=== PATIENT | male | born 1995 | race African-American/Black ===

== ENCOUNTER 2017-06-06 21:12 | Emergency (ER) | payer BC ==
[~2017-06-06] VITALS: Ht 172.7 cm; Wt 77.3 kg
[2017-06-06 21:15] VITALS: Ht 172.7 cm; Wt 77.3 kg
[2017-06-06] MEDS ORDERED: KETOROLAC TROMETHAMINE 30 MG/ML VIAL IV STA (21:34)
[2017-06-06] MEDS ORDERED: ACETAMINOPHEN 500 MG TAB PO STA (21:34)
[2017-06-06] MEDS ORDERED: SODIUM CHLORIDE 0.9% 1000ML 1,000 ML IV ONE (21:45)
[2017-06-06] MEDS ORDERED: ELVI1TAB6 PO (21:51)
[2017-06-06 22:00] LABS: BASO % 0.2 %; BASO ABS # 0.03 K/uL (0-0.2); EOS % 0.2 %; EOS ABS # 0.03 K/uL (0-0.5); HEMATOCRIT 40.5 % (42-52); HEMOGLOBIN 13.7 g/dL (14.0-18.0); IG# 0.05 K/uL (0.00-0.02); LYMPH ABS # 2.09 K/uL (1.2-3.4); MEAN CELL VOLUME 85.1 fL (80-100); MEAN CORPUSCULAR HEMOGLOBIN 28.8 pg (25-34); MEAN CORPUSCULAR HGB CONC 33.8 g/dl (32-36); MEAN PLATELET VOLUME 8.8 fL (7.4-10.4); MONO % 8.6 %; MONO ABS # 1.28 K/uL (0.11-0.59); NEUT % 76.7 %; NEUT ABS # 11.47 K/uL (1.4-6.5); PLATELET COUNT 287 K/uL (130-400); RED CELL DISTRIBUTION WIDTH CV 13.6 % (11.5-14.5); RED CELL DISTRIBUTION WIDTH SD 42.4 fL (36.4-46.3); WHITE BLOOD COUNT 14.95 K/uL (4.8-10.8)
[2017-06-06 22:23] LABS: ALBUMIN 3.7 gm/dl (3.4-5.0); CALCIUM 8.9 mg/dl (8.5-10.1); CREATININE 1.12 mg/dl (0.60-1.40); POTASSIUM 3.4 mmol/L (3.5-5.1)
[2017-06-06 22:25] LABS: TOTAL PROTEIN 8.4 gm/dl (6.4-8.2)
--- NOTE | 2017-06-06 22:26 | DIAGNOSTIC IMAGING REPORT ---
CHEST 2 VIEWS ROUTINE CLINICAL HISTORY: cough fever dyspnea COMPARISON STUDY: No previous studies for comparison. FINDINGS: The bones soft tissues and hemidiaphragms are normal. The cardiomediastinal silhouette is normal. The lungs are clear. The pulmonary vasculature is normal. IMPRESSION: Negative chest. The above report was generated using voice recognition software. It may contain grammatical, syntax or spelling errors. Electronically signed by: Serafin Tao M.D. 06/06/2017 10:25 PM Dictated Date/Time: 06/06/2017 10:25 PM
[2017-06-06 22:27] LABS: INFLUENZA B ANTIGEN Neg for Influ B (NEG)
--- NOTE | 2017-06-06 22:39 | EMERGENCY ROOM VISIT NOTE ---
History First contact with patient: 21:22 Chief Complaint: SORETHROAT Stated Complaint: SWOLLEN THROAT,BODY IN PAIN History of Present Illness The patient is a 21 year old male who presents to the Emergency Room with complaints of a severe sore throat, body aches and a dry cough that started this morning. The patient did not take his temperature. He notes a "swelling feeling in his neck." He tried NyQuil with minimal relief of his symptoms. The patient was diagnosed with HIV a few months ago. He reports that his viral load is undetectable. Review of Systems 10 system review performed and negative unless noted in HPI or below Past Medical/Surgical History HIV positive Social History Smoking Status: Never Smoker Occupation Status: [employer] student Current/Historical Medications Scheduled Amoxicillin & Pot Clavulanate (Augmentin 875-125 mg), 1 TAB PO BID Htmqjapoxblc-Zqsyhmmaav-Lzucav (Genvoya [id number] mg), 1 DOSE PO DAILY Physical Exam Vital Signs Date Time Temp Pulse Resp B/P (MAP) Pulse Ox O2 Delivery O2 Flow Rate FiO2 06/06/17 23:35 36.9 76 20 112/57 99 06/06/17 23:30 76 20 112/57 99 Room Air 06/06/17 22:58 77 20 127/53 99 Room Air 06/06/17 21:15 39.3 106 18 143/79 95 Room Air Physical Exam GENERAL: 21-year-old male, mildly acutely ill in appearance, , well-developed well-nourished. SKIN: The skin was without rashes, erythema, edema, or bruising. HEAD: Normocephalic atraumatic. EARS: External auditory canals clear, tympanic membranes are moderately erythematous bilaterally. There is a serous effusion in the left. EYES: Extraocular movements intact. NOSE: Patent, turbinates without inflammation or discharge. No sinus tenderness. MOUTH: Mucous membranes slightly dry. Tonsils are moderately enlarged with slight exudate bilaterally. No soft palate involvement. The uvula is midline. No trismus. NECK: Supple without nuchal rigidity. Significant lymphadenopathy noted in the anterior cervical chain bilaterally. No JVD. HEART: Regular rate and rhythm without murmurs gallops or rubs. LUNGS: Clear to auscultation bilaterally without wheezes, rales or rhonchi. No accessory muscle use. ABDOMEN: Positive bowel sounds x 4.Soft, nontender, without organomegaly. No guarding or rebound tenderness. MUSCULOSKELETAL: No muscle atrophy, erythema, or edema noted. Strength 5/5 throughout. NEURO: Patient was alert and oriented to person place and time. Normal sensation to touch. No focal neurological deficits. Medical Decision & Procedures ER Provider Diagnostic Interpretation: CXR IMPRESSION: Negative chest. The above report was generated using voice recognition software. It may contain grammatical, syntax or spelling errors. Electronically signed by: Serafin Tao M.D. 06/06/2017 10:25 PM Dictated Date/Time: 06/06/2017 10:25 PM The status of this report is Signed. Draft = Not yet reviewed or approved by Radiologist. Signed = Reviewed and approved by Radiologist Laboratory Results 06/06/17 21:45 Red Blood Count 4.76, Mean Corpuscular Volume 85.1, Mean Corpuscular Hemoglobin 28.8, Mean Corpuscular Hemoglobin Concent 33.8, Mean Platelet Volume 8.8, Neutrophils (%) (Auto) 76.7, Lymphocytes (%) (Auto) 14.0, Monocytes (%) (Auto) 8.6, Eosinophils (%) (Auto) 0.2, Basophils (%) (Auto) 0.2, Neutrophils # (Auto) 11.47, Lymphocytes # (Auto) 2.09, Monocytes # (Auto) 1.28, Eosinophils # (Auto) 0.03, Basophils # (Auto) 0.03 06/06/17 21:45 Test 06/06/17 21:42 06/06/17 21:45 Urine Color YELLOW Urine Appearance CLEAR (CLEAR) Urine pH 6.5 (4.5-7.5) Urine Specific [place] 1.034 (1.000-1.030) Urine Protein NEG (NEG) Urine Glucose (UA) NEG (NEG) Urine Ketones TRACE (NEG) Urine Occult Blood NEG (NEG) Urine Nitrite NEG (NEG) Urine Bilirubin NEG (NEG) Urine Urobilinogen NEG (NEG) Urine Leukocyte Esterase NEG (NEG) Influenza Type A Antigen Neg for Influ A (NEG) Influenza Type B Antigen Neg for Influ B (NEG) White Blood Count 14.95 K/uL (4.8-10.8) Red Blood Count 4.76 M/uL (4.7-6.1) Hemoglobin 13.7 g/dL (14.0-18.0) Hematocrit 40.5 % (42-52) Mean Corpuscular Volume 85.1 fL (80-100) Mean Corpuscular Hemoglobin 28.8 pg (25-34) Mean Corpuscular Hemoglobin Concent 33.8 g/dl (32-36) Platelet Count 287 K/uL (130-400) Mean Platelet Volume 8.8 fL (7.4-10.4) Neutrophils (%) (Auto) 76.7 % Lymphocytes (%) (Auto) 14.0 % Monocytes (%) (Auto) 8.6 % Eosinophils (%) (Auto) 0.2 % Basophils (%) (Auto) 0.2 % Neutrophils # (Auto) 11.47 K/uL (1.4-6.5) Lymphocytes # (Auto) 2.09 K/uL (1.2-3.4) Monocytes # (Auto) 1.28 K/uL (0.11-0.59) Eosinophils # (Auto) 0.03 K/uL (0-0.5) Basophils # (Auto) 0.03 K/uL (0-0.2) RDW Standard Deviation 42.4 fL (36.4-46.3) RDW Coefficient of Variation 13.6 % (11.5-14.5) Immature Granulocyte % (Auto) 0.3 % Immature Granulocyte # (Auto) 0.05 K/uL (0.00-0.02) Anion Gap 5.0 mmol/L (3-11) Est Creatinine Clear Calc Drug Dose 102.6 ml/min Estimated GFR () 109.8 Estimated GFR (Non- 94.7 BUN/Creatinine Ratio 6.9 (10-20) Lactic Acid Level 0.8 mmol/L (0.4-2.0) Calcium Level 8.9 mg/dl (8.5-10.1) Total Bilirubin 0.6 mg/dl (0.2-1) Aspartate Amino Transf (AST/SGOT) 28 U/L (15-37) Alanine Aminotransferase (ALT/SGPT) 27 U/L (12-78) Alkaline Phosphatase 69 U/L (45-117) Total Protein 8.4 gm/dl (6.4-8.2) Albumin 3.7 gm/dl (3.4-5.0) Globulin 4.6 gm/dl (2.5-4.0) Albumin/Globulin Ratio 0.8 (0.9-2) Monoscreen NEG (NEG) Medications Administered Medications (Trade) Dose Ordered Sig/Kelvin Route Start Time Stop Time Status Last Admin Dose Admin Sodium Chloride 1,000 ml @ 999 mls/hr Q1H1M ONCE IV 06/06/17 21:45 06/06/17 22:45 DC 06/06/17 22:02 999 MLS/HR Ketorolac Tromethamine (Toradol Inj) 30 mg NOW STAT IV 06/06/17 21:34 06/06/17 21:37 DC 06/06/17 22:02 30 MG Acetaminophen (Tylenol Tab) 1,000 mg NOW STAT PO 06/06/17 21:34 06/06/17 21:37 DC 06/06/17 22:01 1,000 MG Amoxicillin/ Clavulanate Potassium (Augmentin Tab) 875 mg NOW ONCE PO 06/06/17 23:30 06/06/17 23:31 DC 06/06/17 23:27 875 MG ED Course Patient was seen and examined Vital signs including blood pressure were reviewed medications list was verified with patient Labs were obtained, and a saline lock was established The patient was medicated with Toradol 30 mg IV and Tylenol 1 g p.o. He was hydrated with 1 L normal saline Upon reevaluation, the patient was feeling much better. We discussed the results of his workup. He voiced understanding. He was comfortable being discharged home. The patient was given a dose of Augmentin. I reviewed discharge instructions the patient. They voiced understanding and had no further questions. Medical Decision Differential diagnosis: Bacterial versus viral tonsillitis, peritonsillar abscess, influenza, pneumonia, sepsis This patient is a 21-year-old male, HIV positive, that presents to the emergency department with a severe sore throat and other flulike symptoms for the last day. On exam, he did have some moderate enlargement of the tonsils with exudate bilaterally. He also had lymphadenopathy. His workup reveals leukocytosis. Given his past medical history, fever and physical exam findings , I will treat him for bacterial tonsillitis. He had good symptomatic relief in the emergency department. I believe he is stable to be discharged home. He was urged to have close follow-up with [facility] early next week, and he agrees to return to the emergency department with worsening symptoms. Medication Reconcilliation Current Medication List: was personally reviewed by me Blood Pressure Screening Patient's blood pressure: Elevated blood pressure Blood pressure disposition: Did not require urgent referral Impression Primary Impression: Acute bacterial tonsillitis Departure Information Dispostion Home / Self-Care Condition GOOD Prescriptions Amoxicillin & Pot Clavulanate (Augmentin 875-125 mg) 1 Tab Tab 1 TAB PO BID for 10 Days, #20 TAB Prov: [place] PA-C 06/06/17 Referrals No Doctor, Assigned (PCP) Patient Instructions My [facility] Additional Instructions You had been evaluated for a fever and sore throat. This is likely due to bacterial tonsillitis. Please take the entire course of Augmentin Please increase fluids. Get plenty of rest. No class or work for 2 days. Ibuprofen 800 mg and/or Tylenol 1000 mg every 8 hours for fever and pain You may also alternate these medications for more effective pain relief: Ibuprofen --4 HRS--> Tylenol --4 HRS--> ibuprofen --4 HRS--> Tylenol .... Please follow-up with [facility] early next week Do not hesitate to return to the emergency department with any new, worsening or concerning symptoms; especially, inability to swallow, swelling of the throat , difficulty breathing or a fever of 102 or greater Work Instructions Return To Work: 2 days School Instructions Return To School: 2 days
[2017-06-06] MEDS ORDERED: AMOX875T PO (23:27)
[2017-06-06] MEDS ORDERED: AMOXICILLIN/CLAVULANATE TAB 875 MG TAB PO ONE (23:30)
[2017-06-06 23:35] VITALS: BP 112/57; PULSE 76; TEMP 36.9; O2SAT 99
== END 2017-06-06 23:37 | disposition home or self-care (01) ==
LOC: C.EDB 21:16 → C.EDC 23:37
DX: J03.90 Acute tonsillitis, unspecified (principal); B20 Human immunodeficiency virus [HIV] disease; Z79.899 Other long term (current) drug therapy

== ENCOUNTER 2017-06-08 06:53 | Emergency (ER) | payer BC ==
[~2017-06-08] VITALS: Ht 172.7 cm; Wt 77.3 kg
[~2017-06-08 06:53] MED LIST: AMOX875T PO
[2017-06-08 07:01] VITALS: TEMP 36.8; Ht 172.7 cm; Wt 77.3 kg
[2017-06-08] MEDS ORDERED: CEFTRIAXONE SOD INJ 1 GM ADDVIAL IV STA (07:43)
--- NOTE | 2017-06-08 07:55 | EMERGENCY ROOM VISIT NOTE ---
History First contact with patient: 07:13 Chief Complaint: REFERRED BY DOCTOR Stated Complaint: CALLED BACK TO ER BY DOCTOR History of Present Illness The patient is a 21 year old HIV positive male who presents to the Emergency Room with complaints of sore throat 3 days. The patient states on Thursday evening, he was seen here due to a swollen throat and severe myalgias. The patient was started on Augmentin, however only took the 1 dose he was given while here in the emergency department. 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 He did not take the antibiotics all day yesterday. He states he received a phone call from the emergency department today due to a positive blood culture, and was encouraged to come back to the emergency department for further management. The patient continues to complain of a sore throat and swelling sensation. He states he has been taking Tylenol rycywi-cmc-flzvc, and denies any fever. He continues to have chills and body aches. He continues to feel lymphadenopathy. He denies any diarrhea, constipation, drainage from the throat, ulceration, urinary symptoms. The patient states his last viral load testing was completed approximately 2 months ago in [place]. He states his viral load was undetectable at that time. Review of Systems A complete 10 point review of systems was reviewed with the patient with pertinent positives and negatives as per history of present illness. All else were negative. Past Medical/Surgical History HIV Social History Smoking Status: Never Smoker Smokeless Tobacco Use: No Alcohol Use: none Drug Use: none Marital Status: single Housing Status: lives with roommate Occupation Status: [employer] student Current/Historical Medications Scheduled Amoxicillin & Pot Clavulanate (Augmentin 875-125 mg), 1 TAB PO BID Cefdinir (Omnicef), 300 MG PO Q12H Olmrxcuagusv-Stqlnhoqxn-Zucgee (Genvoya [phone] mg), 1 DOSE PO DAILY Physical Exam Vital Signs Date Time Temp Pulse Resp B/P (MAP) Pulse Ox O2 Delivery O2 Flow Rate FiO2 06/08/17 09:35 58 20 133/66 100 06/08/17 08:50 60 20 121/69 100 Room Air 06/08/17 07:01 36.8 58 20 131/69 100 Room Air Physical Exam VITALS: Vitals are noted on the nurse's note and reviewed by myself. Vital signs stable. GENERAL: This is a 21-year-old black male, in no acute distress, nondiaphoretic , well-developed well-nourished. SKIN: The skin was without rashes, erythema, edema, or bruising. There is no tenting of the skin. Capillary reflex less than 2 seconds. HEAD: Normocephalic atraumatic. EARS: External auditory canals clear, tympanic membranes pearly adhikari without erythema or effusion bilaterally. EYES: Pupils equal round and reactive to light and accommodation. Conjunctivae without injection, sclerae without icterus. Extraocular movements intact. NOSE: Patent, turbinates without inflammation or discharge. No sinus tenderness. MOUTH: Mucous membranes moist. Grade 3 tonsillar enlargement with erythema. Pharynx without obvious ulceration or exudate. Uvula midline. Airway patent. Tongue does not deviate. NECK: Supple without nuchal rigidity. Anterior cervical lymphadenopathy. No thyromegaly. Cervical spine is nontender. No JVD. HEART: Regular rate and rhythm without murmurs gallops or rubs. LUNGS: Clear to auscultation bilaterally without wheezes, rales or rhonchi. No dullness to percussion. No retractions or accessory muscle use. ABDOMEN: Positive bowel sounds x 4. Normal tympanic percussion. Soft, nontender, without masses or organomegaly. Schroeder sign negative. No guarding or rebound tenderness. MUSCULOSKELETAL: No muscle atrophy, erythema, or edema noted. Full range of motion without joint tenderness in all extremities. No tenderness to palpation. Normal gait. Strength 5/5 throughout. NEURO: Patient was alert and oriented to person place and time. Normal sensation to light and sharp touch. Deep tendon reflexes 2+ throughout. No focal neurological deficits. Medical Decision & Procedures Laboratory Results 06/08/17 07:55 Red Blood Count 4.93, Mean Corpuscular Volume 85.6, Mean Corpuscular Hemoglobin 29.2, Mean Corpuscular Hemoglobin Concent 34.1, Mean Platelet Volume 9.1, Neutrophils (%) (Auto) 59.2, Lymphocytes (%) (Auto) 27.4, Monocytes (%) (Auto) 10.7, Eosinophils (%) (Auto) 2.0, Basophils (%) (Auto) 0.6, Neutrophils # (Auto ) 4.17, Lymphocytes # (Auto) 1.93, Monocytes # (Auto) 0.75, Eosinophils # (Auto ) 0.14, Basophils # (Auto) 0.04 06/08/17 07:55 Test 06/08/17 07:55 06/08/17 08:25 White Blood Count 7.04 K/uL (4.8-10.8) Red Blood Count 4.93 M/uL (4.7-6.1) Hemoglobin 14.4 g/dL (14.0-18.0) Hematocrit 42.2 % (42-52) Mean Corpuscular Volume 85.6 fL (80-100) Mean Corpuscular Hemoglobin 29.2 pg (25-34) Mean Corpuscular Hemoglobin Concent 34.1 g/dl (32-36) Platelet Count 276 K/uL (130-400) Mean Platelet Volume 9.1 fL (7.4-10.4) Neutrophils (%) (Auto) 59.2 % Lymphocytes (%) (Auto) 27.4 % Monocytes (%) (Auto) 10.7 % Eosinophils (%) (Auto) 2.0 % Basophils (%) (Auto) 0.6 % Neutrophils # (Auto) 4.17 K/uL (1.4-6.5) Lymphocytes # (Auto) 1.93 K/uL (1.2-3.4) Monocytes # (Auto) 0.75 K/uL (0.11-0.59) Eosinophils # (Auto) 0.14 K/uL (0-0.5) Basophils # (Auto) 0.04 K/uL (0-0.2) RDW Standard Deviation 42.8 fL (36.4-46.3) RDW Coefficient of Variation 13.7 % (11.5-14.5) Immature Granulocyte % (Auto) 0.1 % Immature Granulocyte # (Auto) 0.01 K/uL (0.00-0.02) Anion Gap 7.0 mmol/L (3-11) Est Creatinine Clear Calc Drug Dose 123.6 ml/min Estimated GFR () 137.4 Estimated GFR (Non- 118.6 BUN/Creatinine Ratio 7.8 (10-20) Calcium Level 9.2 mg/dl (8.5-10.1) Total Bilirubin 0.3 mg/dl (0.2-1) Aspartate Amino Transf (AST/SGOT) 17 U/L (15-37) Alanine Aminotransferase (ALT/SGPT) 18 U/L (12-78) Alkaline Phosphatase 60 U/L (45-117) Total Protein 7.7 gm/dl (6.4-8.2) Albumin 3.2 gm/dl (3.4-5.0) Globulin 4.5 gm/dl (2.5-4.0) Albumin/Globulin Ratio 0.7 (0.9-2) Urine Color YELLOW Urine Appearance CLEAR (CLEAR) Urine pH 6.5 (4.5-7.5) Urine Specific [place] 1.020 (1.000-1.030) Urine Protein NEG (NEG) Urine Glucose (UA) NEG (NEG) Urine Ketones NEG (NEG) Urine Occult Blood NEG (NEG) Urine Nitrite NEG (NEG) Urine Bilirubin NEG (NEG) Urine Urobilinogen NEG (NEG) Urine Leukocyte Esterase NEG (NEG) Medications Administered Medications (Trade) Dose Ordered Sig/Kelvin Route Start Time Stop Time Status Last Admin Dose Admin Ceftriaxone Sodium (Rocephin Inj) 1 gm NOW STAT IV 06/08/17 07:43 06/08/17 07:46 DC 06/08/17 08:28 1 GM ED Course The patient was seen and evaluated as above. Previous medical records reviewed. IV access obtained, labs drawn. Repeat blood cultures obtained. The patient was given 1 g Rocephin IV. Lab findings reviewed with the patient at bedside. He was reassessed and is feeling better. The patient does not desire admission or inpatient treatment, and does wish to go home. I discussed the findings with my attending. We are in agreement that outpatient management is appropriate at this time. Discharge instructions reviewed, the patient was discharged home in good condition. Medical Decision This is a 21-year-old male patient who presents to the emergency department today complaining of sore throat. He was contacted by emergency department staff to return due to positive blood culture. The patient states he continues to have a sore throat, but is feeling better than he was feeling 2 days ago when he was seen here initially. 1 blood culture did grow gram-negative cocci. Repeat labs did show improvement in the patient's white blood cell count from almost 15,000-7000. The patient's neutrophil count did decrease as well. Potassium has improved from 3.4-3.7. Renal, hepatic, and other electrolytes are without significant abnormalities. Urinalysis is negative for an signs of infection. Previous ketones which were present are no longer. With the significant improvement in the patient's labs and his desire for outpatient treatment, I do feel that outpatient treatment at this time is appropriate, so long as the patient has very close outpatient follow-up due to his risk factors and positive blood culture. The patient was given 1 g IV Rocephin while here in the emergency department. He was educated on the importance of taking antibiotics as prescribed, and I encouraged him to contact the emergency department if he is unable to obtain the prescription for Omnicef which will be sent to the local pharmacy. The patient was advised to return immediately to the emergency department for any worsening symptoms. I discussed with him the importance of close outpatient follow-up, and he needs to be reassessed in 24 hours by either us here in the emergency department or [facility]. The patient verbalizes understanding. Discharge instructions reviewed, the patient was discharged home in good condition. Differential diagnosis includes strep pharyngitis, acute pharyngitis, peritonsillar abscess, sepsis, cellulitis, malignancy, and others Medication Reconcilliation Current Medication List: was personally reviewed by me Blood Pressure Screening Patient's blood pressure: Normal blood pressure Impression Primary Impression: Acute bacterial pharyngitis Additional Impression: Positive blood culture Departure Information Dispostion Home / Self-Care Condition GOOD Prescriptions Cefdinir (OMNICEF) 300 Mg Cap 300 MG PO Q12H for 10 Days, #20 CAP Prov: Emma Mario PA-C 06/08/17 Referrals [facility] (PCP) Patient Instructions ED Peritonsillar Infec Abx No I andD, My [facility] Additional Instructions He was seen in the emergency department today for positive blood culture. As discussed, your WBC count has improved from 14,000 to 7,000 in the past 2 days even despite not taking antibiotics as prescribed. Repeat blood cultures were obtained. These will be tested and should come back in 24-48 hours. You will receive another phone call if cultures are positive. You were prescribed Omnicef to be taken as directed in place of Augmentin previously prescribed. This is an antibiotic. All antibiotics have the potential to cause diarrhea. Stop this medication and contact a medical provider if you were to develop any significant adverse side effects including: wheezing, shortness of breath, passing out, vomiting, or a diffuse rash. Always take antibiotics as directed and COMPLETE the ENTIRE course regardless of the improvement of your symptoms. You MUST start the antibiotics today. It is IMPERATIVE that you have close follow-up outpatient regarding your illness. You MUST follow-up with [facility] or back here in the ED TOMORROW for re- evaluation of your symptoms after starting antibiotics. Please return immediately to the ED for any worsening symptoms including fever, body aches, chills, nausea, vomiting, difficulty breathing, chest pain, or other concerning symptoms. Problem Qualifiers
[2017-06-08 08:26] LABS: BASO % 0.6 %; BASO ABS # 0.04 K/uL (0-0.2); EOS ABS # 0.14 K/uL (0-0.5); HEMATOCRIT 42.2 % (42-52); HEMOGLOBIN 14.4 g/dL (14.0-18.0); IG# 0.01 K/uL (0.00-0.02); LYMPH % 27.4 %; LYMPH ABS # 1.93 K/uL (1.2-3.4); MEAN CELL VOLUME 85.6 fL (80-100); MEAN CORPUSCULAR HEMOGLOBIN 29.2 pg (25-34); MEAN CORPUSCULAR HGB CONC 34.1 g/dl (32-36); MEAN PLATELET VOLUME 9.1 fL (7.4-10.4); MONO % 10.7 %; MONO ABS # 0.75 K/uL (0.11-0.59); NEUT % 59.2 %; NEUT ABS # 4.17 K/uL (1.4-6.5); PLATELET COUNT 276 K/uL (130-400); RED CELL DISTRIBUTION WIDTH CV 13.7 % (11.5-14.5); RED CELL DISTRIBUTION WIDTH SD 42.8 fL (36.4-46.3); WHITE BLOOD COUNT 7.04 K/uL (4.8-10.8)
[2017-06-08 08:29] LABS: CREATININE 0.93 mg/dl (0.60-1.40)
[2017-06-08 08:30] LABS: ALBUMIN 3.2 gm/dl (3.4-5.0); CALCIUM 9.2 mg/dl (8.5-10.1); POTASSIUM 3.7 mmol/L (3.5-5.1)
[2017-06-08 08:32] LABS: TOTAL PROTEIN 7.7 gm/dl (6.4-8.2)
[2017-06-08] MEDS ORDERED: CEFD300C2 PO (09:09)
[2017-06-08 09:35] VITALS: BP 133/66; PULSE 58; O2SAT 100
== END 2017-06-08 09:36 | disposition home or self-care (01) ==
LOC: C.EDB 06:55
DX: J02.9 Acute pharyngitis, unspecified (principal); R79.9 Abnormal finding of blood chemistry, unspecified

== ENCOUNTER 2017-06-10 16:16 | Emergency (ER) | payer BC ==
[~2017-06-10] VITALS: Ht 172.7 cm; Wt 77.9 kg
[~2017-06-10 16:16] MED LIST changes: +CEFD300C2 PO
[2017-06-10 16:21] VITALS: BP 131/77; PULSE 70; TEMP 36.8; O2SAT 98; Ht 172.7 cm; Wt 77.9 kg
--- NOTE | 2017-06-10 16:47 | EMERGENCY ROOM VISIT NOTE ---
History Report prepared by Graham: Brennan Avila Under the Supervision of: Dr. Johnnie Salamanca D.O. First contact with patient: 16:30 Chief Complaint: REFERRED BY DOCTOR Stated Complaint: REFERRED BY DOCTOR - [facility] CALLED PT TO RETURN History of Present Illness The patient is a 21 year old male who presents to the Emergency Room after referral from the Emergency Department Pharmacist Clinton for a positive Gonorrhea blood culture. The patient was in the Emergency Department two days ago for a persistent sore throat that he had had for three days at that time. The patient is HIV positive and tested positive for Gonorrhea which was resulted today. The patient was called and told to come back into the Emergency Department for a possible antibiotic change. He was prescribed Omnicef and has been taking this for the past two days. He complains that his throat does still feel swollen. Source of History: patient Onset: 5 days Position: throat Quality: other (Sorethroat) Timing: other (Persistent) Note: Positive Gonorrhea test. Review of Systems See HPI for pertinent positives & negatives. A total of 10 systems reviewed and were otherwise negative. Past Medical & Surgical Patient Denies any past medical/surgical histories. Family History Heart disease Social History Smoking Status: Never Smoker Alcohol Use: none Drug Use: none Marital Status: single Housing Status: lives with roommate Occupation Status: [employer] student Current/Historical Medications Scheduled Amoxicillin & Pot Clavulanate (Augmentin 875-125 mg), 1 TAB PO BID Cefdinir (Omnicef), 300 MG PO Q12H Qkkxqfcjhges-Jrfyqvcjzy-Kljeff (Genvoya [id number] mg), 1 DOSE PO DAILY Allergies Coded Allergies: No Known Allergies (Unverified , 06/08/17) Physical Exam Vital Signs Date Time Temp Pulse Resp B/P (MAP) Pulse Ox O2 Delivery O2 Flow Rate FiO2 06/10/17 16:21 36.8 70 17 131/77 98 Room Air Physical Exam CONSTITUTIONAL/VITAL SIGNS: Reviewed / noted above. GENERAL: Non-toxic in appearance. INTEGUMENTARY: Warm, dry, and [place]. HEAD: Normocephalic. EYES: without scleral icterus or trauma. ENT/OROPHARYNX: clear and moist. LYMPHADENOPATHY/NECK: Is supple without lymphadenopathy or meningismus. RESPIRATORY: Lungs clear and equal. CARDIOVASCULAR: Regular rate and rhythm. GI/ABDOMEN: Soft and nontender. No organomegaly or pulsatile mass. No rebound or guarding. Normal bowel sounds. EXTREMITIES: Warm and well perfused. BACK: No CVA tenderness. NEUROLOGICAL: Intact without focal deficits. PSYCHIATRIC: normal affect. MUSCULOSKELETAL: Normally developed with good muscle tone. Medical Decision & Procedures Medications Administered Medications (Trade) Dose Ordered Sig/Kelvin Route Start Time Stop Time Status Last Admin Dose Admin Ceftriaxone Sodium (Rocephin Im) 1,000 mg NOW ONCE IM 06/10/17 17:00 06/10/17 17:01 DC 06/10/17 17:14 1,000 MG Azithromycin (Zithromax Tab) 1,000 mg NOW ONCE PO 06/10/17 17:00 06/10/17 17:01 DC 06/10/17 17:14 1,000 MG ED Course 1637: Previous medical records were reviewed. The patient was evaluated in room B12B. A complete history and physical examination was performed. 1700: Ordered Azithromycin 1000 mg PO, Rocephin 1000 mg IM. 1725: On reevaluation, the patient is comfortable in bed. I discussed the results and findings with the patient. He verbalized agreement of the treatment plan. The patient was discharged home. Medical Decision Differential includes viral illness, influenza, streptococcal pharyngitis, meningitis, pneumonia, sinusitis, UTI, pyelonephritis, otitis media. This is a 21-year-old male who presents to the ED with a chief complaint of being called back for a positive blood culture. The patient was seen on the . At that time he had blood cultures drawn. Initial culture revealed positive gram-negative cocci on 1 of 2 cultures. He was called back on the . He was given IV Rocephin at that time and repeat blood cultures were performed. The second set of blood cultures were negative. The patient's main complaint was a sore throat. Because the culture grew Neisseria gonorrhea, he was called back again today for reevaluation. The patient states that he has minimal residual pharyngitis symptoms and otherwise denies any significant symptoms. He denies any joint pains, fevers, vomiting, headaches or other systemic symptoms. The patient's vital signs here are normal and he is afebrile. His exam was unremarkable. Throat exam did not reveal any significant swelling or erythema. The patient was given a dose of IM Rocephin 1 g and Zithromax 1 g p.o. He will finish his Omnicef prescription. He was advised to return to the emergency department for fevers, joint pains, vomiting or other concerns. He was felt to be stable for discharge. Medication Reconcilliation Current Medication List: was personally reviewed by me Blood Pressure Screening Patient's blood pressure: Normal blood pressure Impression Primary Impression: Positive blood culture Scribe Attestation The scribe's documentation has been prepared under my direction and personally reviewed by me in its entirety. I confirm that the note above accurately reflects all work, treatment, procedures, and medical decision making performed by me. Departure Information Dispostion Home / Self-Care Referrals No Doctor, Assigned (PCP) Patient Instructions My [facility] Additional Instructions Follow-up with your doctor or S on campus for further care and evaluation in 1 -2 days. Return to the emergency department for worsening or new symptoms or any concerns. You have been examined and treated today on an emergency basis only. This is not a substitute for, or an effort to provide, complete comprehensive medical care. It is impossible to recognize and treat all injuries or illnesses in a single emergency department visit. It is therefore important that you follow up closely with your doctor. Call as soon as possible for an appointment. Finish the Omnicef you were prescribed. Sexual partners in the past 2 months should be treated and advised that they may have gonorrhea. Avoid risky sexual activity.
[2017-06-10] MEDS ORDERED: AZITHROMYCIN 250 MG TAB PO ONE (17:00)
[2017-06-10] MEDS ORDERED: CEFTRIAXONE SOD 350MG/ML 1 GM VIAL IM ONE (17:00)
[2017-06-10] MEDS ORDERED: ELVI1TAB6 PO (21:51)
== END 2017-06-10 17:50 | disposition home or self-care (01) ==
LOC: C.EDB 16:19
DX: A54.9 Gonococcal infection, unspecified (principal); B20 Human immunodeficiency virus [HIV] disease